=== PATIENT | male | born 1990 | race Caucasian/White ===

== ENCOUNTER 2022-02-02 07:42 | Emergency (ER) | payer OTHER ==
[2022-02-02 07:51] VITALS: BP 135/85
[2022-02-02] MEDS ORDERED: CHERRY SYRUP 10 ML UDC PO ONE (07:55)
[2022-02-02] MEDS ORDERED: DEXAMETHASONE 10 MG/ML VIAL PO STA (07:55)
--- NOTE | 2022-02-02 08:06 | XRAY Report ---
PROCEDURE: Chest 1 View X-Ray INDICATIONS: cough x2 wks TECHNIQUE: One view of the chest was acquired. COMPARISON: None. FINDINGS: Surgical changes and devices: None. Lungs and pleura: No pleural effusions or pneumothorax. Lungs are clear. Mediastinum: Mediastinal contours appear normal. Heart size is normal. Bones and chest wall: No suspicious bony lesions. Overlying soft tissues appear unremarkable. IMPRESSION: No acute cardiopulmonary disease. Reviewed by: Joe Huitron MD on 02/02/2022 8:04 AM PDT Approved by: Joe Huitron MD on 02/02/2022 8:04 AM PDT Station ID: [id number]
--- NOTE | 2022-02-02 08:34 | ED Physician Documentation ---
PD HPI URI - Stated complaint Stated Complaint: SOA, COUGHING UP BLOOD - Chief complaint Chief Complaint: Heent - History obtained from History obtained from: Patient - History of Present Illness Timing - onset: How many weeks ago (2) - Additional information Additional information: 31-year-old male with no reported past medical history presents for evaluation of persistent cough for the last 2 weeks. Patient states that he visited a walk-in clinic twice for this issue, on the last visit he was diagnosed with bronchitis and discharged with an inhaler and steroids. He states that he finished the steroids 3 days ago but he does not feel any better and has persistent cough. He has been taking [id number] phenylephrine without significant relief. Reports associated decreased hearing and nasal congestion Denies fevers, chills, nausea, vomiting, shortness of breath, chest pain, other complaints at this time. Review of Systems Ten Systems: 10 systems reviewed and negative Constitutional: denies: Fever, Chills Ears: reports: Loss of hearing. denies: Ear pain, Drainage/discharge, Tinnitus/ringing Nose: reports: Congestion. denies: Rhinorrhea / runny nose Respiratory: reports: Cough. denies: Dyspnea, Wheezing PD PAST MEDICAL HISTORY - Past Medical History Past Medical History: No - Present Medications Home Medications: Ambulatory Orders Medication Instructions Recorded Confirmed Benzonatate [Tessalon] 200 mg PO TID PRN #30 cap 02/02/22 methylPREDNISolone [Medrol Dose 1 each PO .PACKAGEINSTRUCTIONS 6 02/02/22 Pack] Days #1 each - Allergies Allergies/Adverse Reactions: Allergies Allergy/AdvReac Type Severity Reaction Status Date / Time No Known Drug Allergies Allergy Verified 02/02/22 07:51 PD ED PE NORMAL - Vitals Vital signs reviewed: Yes - General General: Alert and oriented X 3, No acute distress, Well developed/nourished - HEENT HEENT: Atraumatic, PERRL, EOMI, Moist mucous membranes, Pharynx benign - Neck Neck: Supple, no meningeal sign, No bony TTP, C-Spine cleared by NEXUS criteria - Cardiac Cardiac: RRR, No murmur, Strong equal pulses - Respiratory Respiratory: No respiratory distress, Other (Expiratory wheezing upper and lower lung lepe) - Abdomen Abdomen: Soft, Non tender, Non distended - Back Back: No CVA TTP, No spinal TTP - Derm Derm: Normal color, Warm and dry, No rash - Extremities Extremities: No deformity, No tenderness to palpate, Normal ROM s pain, No edema - Neuro Neuro: Alert and oriented X 3, perianesthesia manager 2-12 intact, No motor deficit, No sensory deficit, Normal speech - Psych Psych: Normal mood, Normal affect Results - Vitals Vitals: Vital Signs - 24 hr 02/02/22 07:49 Temperature 36.4 C L Heart Rate 91 Respiratory 16 Rate Blood Pressure 135/85 H O2 Saturation 95 Oxygen O2 Source Room air PD MEDICAL DECISION MAKING - ED course Complexity details: reviewed results, re-evaluated patient, considered differential, d/w patient ED course: Persistent cough for 2 weeks. Lung exam with expiratory wheezing in all lung lepe, otherwise clear. Symptoms consistent with viral process. Patient given additional steroids, cough suppressant medications, as well as counseled to take behind the counter pseudoephedrine and not phenylephrine, as it tends to work better. Departure - Departure Disposition: 01 Home, Self Care Clinical Impression: Viral bronchitis Condition: Stable Instructions: ED Upper Resp Infec No Abx Tx Prescriptions: methylPREDNISolone [Medrol Dose Pack] 1 each PO .PACKAGEINSTRUCTIONS 6 Days #1 each Benzonatate [Tessalon] 200 mg PO TID PRN #30 cap PRN Reason: Cough Comments: Make sure to get decongestants that contain pseudoephedrine and not phenylephrine. This is found behind the drugstore counter. You can combine them with Mucinex (aka Mucinex D) for additional congestion relief. Follow-up with your primary care physician. Your prescriptions have been sent to [facility] Discharge Date/Time: 02/02/22 08:58
== END 2022-02-02 08:58 | disposition home or self-care (01) ==
LOC: ED 07:42
DX: J20.8 Acute bronchitis due to other specified organisms (principal)
CPT/HCPCS: 71045; 99283; 99284; A9270